=== PATIENT | male | born 1990 | race Caucasian/White ===

== ENCOUNTER 2024-03-26 10:05 | Emergency (ER) | payer MEDICAID ==
[~2024-03-26] VITALS: Ht 167.6 cm; Wt 63.0 kg
[2024-03-26 10:15] VITALS: BP 125/69; PULSE 69; RESP 16; TEMP 98.3; O2SAT 98
[2024-03-26] MEDS ORDERED: PRED20TA PO (10:42)
[2024-03-26] MEDS ORDERED: TRIA15CR61 TOP (10:42)
[2024-03-26] MEDS ORDERED: DIPH25CA83 PO (10:42)
[2024-03-26] MEDS: famotidine 20mg tablet PO ONE (10:48)
[2024-03-26] MEDS: dexamethasone sod phosphate 10mg/ml inj IM STA (10:49)
[2024-03-26] MEDS: diphenhydrAMINE 50 mg/ml inj IM ONE (10:50)
== END 2024-03-26 10:35 | disposition home or self-care (01) ==
LOC: ER 10:08
DX: S80.861A Insect bite (nonvenomous), right lower leg, initial encounter (principal); Z88.2 Allergy status to sulfonamides; W57.XXXA Bitten or stung by nonvenomous insect and other nonvenomous arthropods, initial encounter; Y93.89 Activity, other specified; Y92.89 Other specified places as the place of occurrence of the external cause; Y99.8 Other external cause status
CPT/HCPCS: 96372; 99284; J1100; J1200